=== PATIENT | female | born 1990 | race Hispanic/Latino ===

== ENCOUNTER 2019-11-26 20:25 | Observation (INO) | payer MEDICAID ==
[~2019-11-26] VITALS: Ht 149.9 cm; Wt 74.8 kg
[2019-11-26 19:00] VITALS: BP 120/70
[2019-11-26 21:09] LABS: APPEARANCE,URINE Clear (CLEAR); BILIRUBIN,URINE Negative (NEGATIVE); COLOR,URINE Yellow (YELLOW); GLUCOSE, URINE (UA) Negative (NEGATIVE); KETONES,URINE Negative (NEGATIVE); LEUKOCYTE ESTERASE ,URINE Small (NEGATIVE); NITRATE,URINE Negative (NEGATIVE); OCCULT BLOOD,URINE Negative (NEGATIVE); PROTEIN,URINE Negative (NEGATIVE); UROBILINOGEN,URINE 0.2 mg/dL (0.2-1.0)
[2019-11-26 21:17] LABS: AMPHET/METH SCREEN,URINE NEGATIVE (NEGATIVE); BARBITURATE SCREEN, URINE NEGATIVE (NEGATIVE); BENZODIAZEPINES SCREEN,URINE NEGATIVE (NEGATIVE); CANNABINOID SCREEN,URINE NEGATIVE (NEGATIVE); COCAINE SCREEN,URINE NEGATIVE (NEGATIVE); OPIATE SCREEN,URINE NEGATIVE (NEGATIVE); PHENCYCLIDINE SCREEN,URINE NEGATIVE (NEGATIVE)
[2019-11-26 21:21] LABS: RBC,URINE None Seen /HPF (0-1)
[2019-11-26 21:22] LABS: BACTERIA,URINE Few /HPF (None Seen); WBC,URINE 0-1 /HPF (0-1)
[2019-11-26] MEDS ORDERED: PROMETHAZINE HCL 25 MG/ML 1ML AMPULE IM SCH (22:30)
[2019-11-26] MEDS: LACTATED RINGERS 1000ML 1,000 ML IV SCH (22:41)
--- NOTE | 2019-11-27 00:15 | NUR ---
EXPLAINED USE OF SITZ BATH TO PT.. PT VERBALIZED UNDERSTANDING. DID NOT WANT TO USE SITZ BATH AT THIS TIME DUE TO IS ASLEEP AND SHE DOES NOT WANT TO WAKE HIM TO KEEP AND EYE ON BABY.
--- NOTE | 2019-11-27 00:47 | NUR ---
PREVIOUS ENTRY ENTERED IN ERROR. WRONG PT.
[2019-11-27] MEDS: LACTATED RINGERS 1000ML 1,000 ML IV SCH (02:34)
[2019-11-27] MEDS ORDERED: FLU VACC QS2019-20 36MOS UP/PF 60 MCG/0.5 ML ML IM ONE (07:45)
[2019-11-27] MEDS ORDERED: DIPH,PERTUSS(ACELL),TET VAC/PF 0.5 ML VIAL IM SCH (08:30)
[2019-11-27] MEDS ORDERED: FLU VACC QS2019-20 36MOS UP/PF 60 MCG/0.5 ML ML IM SCH (09:00)
== END 2019-11-27 09:14 | disposition home or self-care (01) ==
LOC: EDH 20:25 → LDH 20:26
PROVIDERS: ADMIT Obstetrics & Gynecology; ATTEND Obstetrics & Gynecology
DX: O47.03 False labor before 37 completed weeks of gestation, third trimester (principal); O16.3 Unspecified maternal hypertension, third trimester; O09.33 Supervision of pregnancy with insufficient antenatal care, third trimester; Z87.59 Personal history of other complications of pregnancy, childbirth and the puerperium; Z3A.33 33 weeks gestation of pregnancy; Z23 Encounter for immunization
CPT/HCPCS: 76805; 80305; 81001; 90471; 90472; 90715; 96372; 99284; G0378 ×14; Q2035; 96360; 96361

== ENCOUNTER 2019-12-07 12:51 | Observation (INO) | payer MEDICAID ==
[2019-12-07 13:19] LABS: APPEARANCE,URINE Clear (CLEAR); BILIRUBIN,URINE Negative (NEGATIVE); COLOR,URINE Yellow (YELLOW); GLUCOSE, URINE (UA) Negative (NEGATIVE); KETONES,URINE Negative (NEGATIVE); LEUKOCYTE ESTERASE ,URINE Small (NEGATIVE); NITRATE,URINE Negative (NEGATIVE); OCCULT BLOOD,URINE Negative (NEGATIVE); PH,URINE 6.5 (5.0-8.0); PROTEIN,URINE Negative (NEGATIVE); UROBILINOGEN,URINE 0.2 mg/dL (0.2-1.0)
[2019-12-07 13:30] LABS: BACTERIA,URINE Rare /HPF (None Seen); RBC,URINE None Seen /HPF (0-1); SQUAMOUS EPITHELIAL CELL,UR Few /HPF (0-2)
[2019-12-07 13:31] LABS: MUCUS,URINE Rare LPF (None Seen)
[2019-12-07] MEDS ORDERED: TERBUTALINE SULFATE VIAL 1MG/ML SQ PRN (13:45)
[2019-12-07] MEDS ORDERED: LACTATED RINGERS 1000ML IV SCH (13:45)
[2019-12-07] MEDS ORDERED: LACTATED RINGERS 1000ML 1,000 ML IV SCH (14:00)
== END 2019-12-07 15:20 | disposition home or self-care (01) ==
LOC: EDH 12:51 → LDH 13:03
PROVIDERS: ADMIT Obstetrics & Gynecology; ATTEND Obstetrics & Gynecology
DX: O26.893 Other specified pregnancy related conditions, third trimester (principal); Z3A.38 38 weeks gestation of pregnancy; Z90.49 Acquired absence of other specified parts of digestive tract
CPT/HCPCS: 81001; 96372; 99284; G0378 ×2; J3105; J7120; 96360

== ENCOUNTER 2019-12-15 04:59 | Inpatient (IN) | payer MEDICAID ==
[~2019-12-15] VITALS: Ht 149.9 cm; Wt 77.6 kg
[2019-12-15] VITALS (20 sets, daily range): BP systolic 103–125; BP diastolic 52–88
[2019-12-15] MEDS ORDERED: LACTATED RINGERS 1000ML IV PRN (05:15)
[2019-12-15] MEDS ORDERED: PREN1TAB80 PO (05:17)
[2019-12-15] MEDS ORDERED: DIPH25TA51 PO (05:18)
[2019-12-15] MEDS ORDERED: ACET-2123 PO (05:19)
[2019-12-15 05:42] LABS: BILIRUBIN,URINE Negative (NEGATIVE); COLOR,URINE Yellow (YELLOW); GLUCOSE, URINE (UA) Negative (NEGATIVE); KETONES,URINE Negative (NEGATIVE); LEUKOCYTE ESTERASE ,URINE Moderate (NEGATIVE); NITRATE,URINE Negative (NEGATIVE); OCCULT BLOOD,URINE Negative (NEGATIVE); PH,URINE 7.5 (5.0-8.0); PROTEIN,URINE Negative (NEGATIVE)
[2019-12-15 05:49] LABS: AMPHET/METH SCREEN,URINE NEGATIVE (NEGATIVE); BARBITURATE SCREEN, URINE NEGATIVE (NEGATIVE); BENZODIAZEPINES SCREEN,URINE NEGATIVE (NEGATIVE); CANNABINOID SCREEN,URINE NEGATIVE (NEGATIVE); COCAINE SCREEN,URINE NEGATIVE (NEGATIVE); OPIATE SCREEN,URINE NEGATIVE (NEGATIVE); PHENCYCLIDINE SCREEN,URINE NEGATIVE (NEGATIVE)
[2019-12-15 06:05] LABS: APPEARANCE,URINE HAZY (CLEAR)
[2019-12-15 06:18] LABS: BACTERIA,URINE Few /HPF (None Seen); RBC,URINE 0-1 /HPF (0-1)
[2019-12-15] MEDS ORDERED: CALDOLOR 800MG+NS 250ML 250 ML IV ONE (07:42)
[2019-12-15] MEDS ORDERED: CEFAZOLIN SODIUM 1 GM VIAL ONE ×2 (07:42→07:52)
[2019-12-15] MEDS ORDERED: CALDOLOR 800MG+NS 250ML 250 ML IV PRN (08:00)
[2019-12-15] MEDS ORDERED: LACTATED RINGERS 1000ML 1,000 ML IV SCH (08:00)
[2019-12-15] MEDS ORDERED: CEFAZOLIN SODIUM 1 GM VIAL IVP PRN (08:00)
[2019-12-15 08:40] LABS: HEMATOCRIT 29.8 % (36-48); MEAN CORPUSCULAR HEMOGLOBIN 29.4 pg (27.0-33.0); MEAN CORPUSCULAR HGB CONC 33.2 g/dL (32.0-36.0); MEAN CORPUSCULAR VOLUME 88.4 fL (79-99); PLATELET COUNT (AUTO) 288 K/uL (130-400); RED BLOOD CELL COUNT(AUTO) 3.37 MIL/uL (4.00-5.50); RED CELL DISTRIBUTION WIDTH 13.2 % (11.0-15.5); WHITE BLOOD COUNT (AUTO) 8.7 K/uL (4.8-10.8)
[2019-12-15] MEDS ORDERED: OXYTOCIN-LR 20 UNITS/1000 ML 1,000 ML IV PRN (08:45)
[2019-12-15] MEDS ORDERED: IBUPROFEN 600 MG TABLET PO PRN (08:45)
[2019-12-15] MEDS ORDERED: MEASLES/MUMPS/RUBELLA VACCINE, LIVE 0.5 ML/VIAL SQ SCH (08:45)
[2019-12-15] MEDS ORDERED: MEPERIDINE-PF 75 MG/ML SYG IM PRN (08:45)
[2019-12-15] MEDS ORDERED: DIPHENHYDRAMINE HCL 25 MG CAPSULE PO PRN (08:45)
[2019-12-15] MEDS ORDERED: SODIUM CHLORIDE 0.9% 10 ML VIAL IVP PRN (08:45)
[2019-12-15] MEDS ORDERED: PROMETHAZINE HCL 25 MG/ML 1ML AMPULE IM PRN (08:45)
[2019-12-15] MEDS ORDERED: ACETAMINOPHEN EXTRA STRENGTH 500 MG TABLET PO PRN (08:45)
[2019-12-15] MEDS ORDERED: LANOLIN 30GM OINTMENT TP PRN (08:45)
[2019-12-15] MEDS ORDERED: DIPH,PERTUSS(ACELL),TET VAC/PF 0.5 ML VIAL IM SCH (08:45)
[2019-12-15] MEDS ORDERED: BISACODYL 10 MG SUPP.RECT RC PRN (08:45)
[2019-12-15] MEDS ORDERED: DEXTROSE 5 %-0.45 % NACL 1,000 ML IV PRN (08:45)
[2019-12-15] MEDS ORDERED: ACETAMINOPHEN-CODEINE 300/30MG TAB PO PRN (08:45)
[2019-12-15] MEDS ORDERED: CITRIC ACID/SODIUM CITRATE 30 ML UDCUP ONE (09:06)
[2019-12-15] MEDS ORDERED: DURAMORPH PF1 MG/ML 10ML AMP IV ONE (09:09)
[2019-12-15] MEDS ORDERED: FENTANYL CITRATE PF 50 MCG/1 ML 2ML VIAL ONE (09:10)
[2019-12-15] MEDS ORDERED: CEFAZOLIN SODIUM 1 GM VIAL IVP ONE (09:15)
[2019-12-15] MEDS ORDERED: OXYTOCIN 10 USP UNITS/ML ONE ×2 (09:33→09:54)
[2019-12-15] MEDS ORDERED: PROPOFOL 10 MG/ML 20ML VIAL IV ONE (09:34)
[2019-12-15] MEDS ORDERED: ONDANSETRON HCL 4 MG/2 ML VIAL ONE (09:48)
[2019-12-15] MEDS ORDERED: MEPERIDINE-PF 25 MG/ML SYG ONE ×2 (11:19→11:33)
--- NOTE | 2019-12-15 11:26 | NUR ---
PT COMPLAIN OF LEFT SHOULDER PAIN. ORDERS GIVEN FOR DEMEROL. Addendum: 12/15/19 at 1227 by NOE MAGANA RN RN Amended: Links added.
--- NOTE | 2019-12-15 11:30 | NUR ---
PT COMPLAINED OF LEFT SHOULDER PAIN. ALLISON NOLAN NOTIFIED. ORDERS GIVEN FOR DEMEROL AND MONITOR. Addendum: 12/15/19 at 1227 by NOE MAGANA RN RN Amended: Links added.
--- NOTE | 2019-12-15 11:50 | NUR ---
ORDERS GIVEN FOR EKG. Addendum: 12/15/19 at 1228 by NOE MAGANA RN RN Amended: Links added.
--- NOTE | 2019-12-15 11:55 | NUR ---
EKG NORMAL. PT STABLE. LEFT SHOULDER PAIN RELIEVED 11/06. VSS. OK TO TRANSFER PT TO RM 122 Addendum: 12/15/19 at 1230 by NOE MAGANA RN RN Amended: Links added.
[2019-12-15] MEDS ORDERED: LORATADINE 10 MG TABLET PO PRN (12:15)
[2019-12-15] MEDS: HYDROCODONE/ACETAMINOPHEN 5/325 MG TAB PO PRN ×2 (14:37→23:54)
[2019-12-15] MEDS: CALDOLOR 800MG+NS 250ML 250 ML IV SCH (16:21)
--- NOTE | 2019-12-15 16:24 | NUR ---
HX OF ANXIETY SW MET WITH PT AND COMMON LAW AMINA CALDERON [id number]. COUPLE LIVES IN [facility] WITH THEIR 4 SONS AGES 8,7,2 AND SHANIA CALDERON. PT WORKS PROVIDER, INDEPENDENT, DRIVES, INDEPENDENT, WORKS AND DRIVES. PT HAS MEDICAID WIC AND FOOD STAMP ASSISTANCE. COUPLE HAS BASIC ITEMS FOR INCLUDING CAR SEAT AND KIDS CLINIC WILL FOLLOW BABY AFTER DC. FAMILY HAS GOOD FAMILY SUPPORT. PT REPORTS SHE WAS DX WITH ANXIETY BY HER COUNSELOR IN [place] IN 2017. PT STOPPED MEDS RELATED TO IN 2017. 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 PT STATES SHE WAS 21 AND OVERWHELMED WITH CARING FOR BABY. PT STATES SHE WAS AFRAID TO HOLD BABY FOR FIRST 2 WEEKS. HELPED DURING THIS TIME AND SHE WAS ABLE TO OVERCOME FEARS AND PROVIDE CARE. PT STATES THAT SHE DOES NOT HAVE ANY CONCERNS FOR HAVING PPD, SHE NOW HAS EXPERIENCE WITH CARING FOR NB AND SONS. PT DENIES HX OF ABUSE, SUBSTANCE ABUSE, CPS ISSUES. PT DENIES NEED FOR REFERRAL OR INTERVENTION Addendum: 12/15/19 at 1633 by ALFRED ROCHA Amended: Links added.
[2019-12-15] MEDS: IBUPROFEN 800 MG TAB PO SCH ×2 (16:45→20:26)
[2019-12-15] MEDS: DOCUSATE SODIUM 100 MG CAP PO SCH (21:00)
[2019-12-16] MEDS: CALDOLOR 800MG+NS 250ML 250 ML IV SCH (00:30)
[2019-12-16 03:15] VITALS: BP 107/66
[2019-12-16] MEDS: HYDROCODONE/ACETAMINOPHEN 5/325 MG TAB PO PRN ×3 (06:02→14:37)
--- NOTE | 2019-12-16 06:02 | NUR ---
NKECHI YEPEZ, PT. INST TO CALL FOR ASSIST BEFORE GETTING OUT OF BED; VERBALIZED UNDERSTANDING. SUZAN CARE DONE BY LETY AND ASSISTED PT TO CHAIR. Addendum: 12/16/19 at 0705 by DANIEL WILLETT RN RN Amended: Links added.
[2019-12-16 07:09] LABS: HEMATOCRIT 27.1 % (36-48); MEAN CORPUSCULAR HEMOGLOBIN 28.3 pg (27.0-33.0); MEAN CORPUSCULAR HGB CONC 32.1 g/dL (32.0-36.0); MEAN CORPUSCULAR VOLUME 88.3 fL (79-99); PLATELET COUNT (AUTO) 215 K/uL (130-400); RED BLOOD CELL COUNT(AUTO) 3.07 MIL/uL (4.00-5.50); RED CELL DISTRIBUTION WIDTH 13.1 % (11.0-15.5)
[2019-12-16 07:28] VITALS: BP 109/64
[2019-12-16 08:10] LABS: HEPATITIS Bs ANTIGEN SCREEN P Negative (Negative)
[2019-12-16] MEDS: SIMETHICONE 80 MG TAB.CHEW PO PRN ×3 (08:30→17:08)
[2019-12-16] MEDS: DOCUSATE SODIUM 100 MG CAP PO SCH (08:30)
[2019-12-16] MEDS: IBUPROFEN 800 MG TAB PO SCH ×2 (08:31→17:18)
--- NOTE | 2019-12-16 09:00 | NUR ---
DR. QUIROZ CALLED AND WAS GIVEN UPDATE ON PATIENT AND ORDER RECEIVED FOR PATIENT TO BE DISCHARGED THIS AFTERNOON IF STABLE. PATIENT UP AND AMBULATED WITH SPOUSE IN HALLWAY AND WENT TO VISIT WITH BABY. PATIENT DENIES ANY DIZZINESS ON AMBULATION.
[2019-12-16 09:49] LABS: RAPID PLASMA REAGIN NONREACTIVE (NONREACTIVE)
[2019-12-16 11:02] VITALS: BP 109/71
[2019-12-16 16:08] VITALS: BP 130/71
--- NOTE | 2019-12-16 18:45 | NUR ---
DISCHARGE INSTRUCTIONS GIVEN AND SCRIPT PROVIDED TO PATIENT AND INSTRUCTED ON HOME MED. PATIENT DENIES PAIN AND HAD JUST RETURNED FROM VISITING WITH BABY. PATIENT STABLE AND SPOUSE VERY SUPPORTIVE. VERBALIZED NOT HAVING A BM BUT HAD PASSED LOTS OF GAS.
--- NOTE | 2019-12-16 19:00 | NUR ---
PATIENT TAKEN VIA W/C TO FAMILY VEHICLE AND WAS DISCHARGED TO SIGNIFICANT OTHER WITHOUT BABY. TELEPHONE NUMBER WAS ISSUED TO CALL FOR BABY UPDATES AND DISCHARGE.
== END 2019-12-16 17:00 | disposition home or self-care (01) | DRG 540 ==
LOC: EDH 04:59 → LDH 05:00 → OBSVTOIN 05:00 → WSH 12:00
PROVIDERS: ADMIT Obstetrics & Gynecology; ATTEND Obstetrics & Gynecology
PROC: 10D00Z1 Extraction of Products of Conception, Low, Open Approach (ICD-10-PCS; principal; 2019-12-15 09:00)
DX: O34.211 Maternal care for low transverse scar from previous cesarean delivery (principal); D50.9 Iron deficiency anemia, unspecified; O36.8190 Decreased fetal movements, unspecified trimester, not applicable or unspecified; Z37.0 Single live birth; Z3A.37 37 weeks gestation of pregnancy; O99.02 Anemia complicating childbirth; O99.89 Other specified diseases and conditions complicating pregnancy, childbirth and the puerperium; K66.0 Peritoneal adhesions (postprocedural) (postinfection); O69.81X0 Labor and delivery complicated by cord around neck, without compression, not applicable or unspecified
CPT/HCPCS: 36415; 59510; 80305; 81001; 85027; 86592; 86701; 86850; 86900; 86901; 87088; 87340; 87390; 93005; A4344; G0378; J0690; J1741; J2175; J2274; J2405; J2590; J2704; J3010; J7120

== ENCOUNTER 2021-01-05 21:47 | Emergency (ER) | payer MEDICAID ==
[~2021-01-05 21:47] MED LIST: ACET-2123 PO; DIPH25TA51 PO; PREN1TAB80 PO
[2021-01-05] MEDS ORDERED: ACETAMINOPHEN EXTRA STRENGTH 500 MG TABLET ONE (22:16)
[2021-01-05] MEDS ORDERED: IBUPROFEN 600 MG TABLET ONE (22:16)
[2021-01-05] MEDS ORDERED: ACETAMINOPHEN-CODEINE 300/30MG TAB ONE (22:17)
== END 2021-01-05 22:57 | disposition home or self-care (01) ==
LOC: EDH 21:47
DX: S93.105A Unspecified dislocation of left toe(s), initial encounter (principal); S63.502A Unspecified sprain of left wrist, initial encounter; S93.602A Unspecified sprain of left foot, initial encounter; Z90.49 Acquired absence of other specified parts of digestive tract; Z98.890 Other specified postprocedural states; X58.XXXA Exposure to other specified factors, initial encounter; Y93.89 Activity, other specified; Y92.89 Other specified places as the place of occurrence of the external cause; Y99.8 Other external cause status
CPT/HCPCS: 28515; 73110; 73630; 73660